=== PATIENT | female | born 1990 | race Two or more races ===

== ENCOUNTER 2018-12-22 03:13 | Emergency (ER) | payer BC ==
[2018-12-22 03:27] VITALS: BP 115/74
--- NOTE | 2018-12-22 03:38 | EDM.PDOC ---
ED HPI GENERAL MEDICAL PROBLEM - General Chief Complaint: Abdominal Pain Stated Complaint: LOWER ABDOMINAL PAIN Time Seen by Provider: 12/22/18 03:45 Source of Information: Reports: Patient, RN Notes Reviewed - History of Present Illness INITIAL COMMENTS - FREE TEXT/NARRATIVE: 28-year-old female lower mid abdominal discomfort that first started about 5 or 6 months ago. She did have quite extensive medical evaluation back at that time which did not show apparent etiology. She has continued to have symptoms since that time but now becoming much worse the past couple of weeks. The pain does come and go but now more steady and persistent, more severe and now also is radiating at times to her back. She's had no voiding symptoms. She states that she has not been constipated nor has she been having diarrhea. There has been a stool change in that it is more dark and "more foul-smelling smelling than what it had been in the past. She did have a Pap smear last summer followed by colposcopy for "abnormal cells". her last menstrual period a couple of weeks ago was quite heavy with some clots. She feels like her appetite is diminished. She is not aware of weight loss. She has not been having upper abdominal discomfort, chest pain or difficulty breathing. Lower Abdomen Pain Score (Numeric/FACES): 8 - Related Data Allergies Allergy/AdvReac Type Severity Reaction Status Date / Time No Known Allergies Allergy Verified 12/22/18 03:27 Home Meds: Home Meds Dicyclomine [Bentyl] 10 mg PO TID PRN #20 cap 12/22/18 [Rx] Past Medical History HEENT History: Reports: Other (See Below) Other HEENT History: Dry eyes Cardiovascular History: Reports: Heart Murmur Respiratory History: Reports: None Gastrointestinal History: Reports: None Genitourinary History: Reports: None [employer] History: Reports: , Spontaneous Musculoskeletal History: Reports: None Oncologic (Cancer) History: Reports: None - Infectious Disease History Infectious Disease History: Reports: Chicken Pox - Past Surgical History HEENT Surgical History: Reports: Naso-Sinus Surgery, Oral Surgery Female Surgical History: Reports: D&C, Other (See Below) - History Comment History Comment: vits for home meds Social & Family History - Family History OBGYN: Reports: Endocrine/Metabolic: Reports: Diabetes, Type I, Hypothyroidism Other Endocrine/Metabolic Family History: Father DM. Mother Hypothyroid ED ROS GENERAL - Review of Systems Review Of Systems: See Below Constitutional: Denies: Fever, Chills HEENT: Denies: Sinus Problem, Throat Pain Respiratory: Denies: Shortness of Breath Cardiovascular: Denies: Chest Pain GI/Abdominal: Reports: Abdominal Pain, Decreased Appetite, Melena (her stools have been more dark than usual), Nausea. Denies: Constipation, Diarrhea, Hematochezia Musculoskeletal: Reports: No Symptoms Skin: Reports: No Symptoms Neurological: Reports: No Symptoms ED EXAM, GI/ABD - Physical Exam Exam: See Below General Appearance: Alert, Mild Distress Eyes: Bilateral: Normal Appearance Throat/Mouth: Normal Inspection, Normal Oropharynx Head: Atraumatic. No: Facial Swelling Neck: Supple, Full Range of Motion Respiratory/Chest: No Respiratory Distress, Lungs Clear, Normal Breath Sounds Cardiovascular: Regular Rate, Rhythm GI/Abdominal Exam: Tender (mild diffuse tenderness). No: Rigid, Rebound Rectal (Female) Exam: Heme - Stool, Other (no unusual mass or tenderness palpable) Extremities: Normal Inspection, Normal Range of Motion. No: Pedal Edema Neurological: Alert, Oriented, No Motor/Sensory Deficits Skin Exam: Warm, Dry, Normal Color Course - Vital Signs Last Recorded V/S: Last Vital Signs Temp 98.5 F 12/22/18 03:24 Pulse 88 12/22/18 03:24 Resp 18 12/22/18 03:24 BP 115/74 12/22/18 03:24 Pulse Ox 18 L 12/22/18 03:24 - Orders/Labs/Meds Labs: Laboratory Tests 12/22/18 12/22/18 12/22/18 Range/Units 04:15 04:15 04:15 WBC 6.51 (3.98-10.04) K/mm3 RBC 4.18 (3.98-5.22) M/mm3 Hgb 10.8 L (11.2-15.7) gm/L Hct 33.2 L (34.1-44.9) % MCV 79.4 (79.4-94.8) fl MCH 25.8 (25.6-32.2) pg MCHC 32.5 (32.2-35.5) g/dl RDW Std Deviation 45.6 (36.4-46.3) fL Plt Count 293 (182-369) K/mm3 MPV 10.3 (9.4-12.3) fl Neutrophils % (Manual) 56 (40-60) % Band Neutrophils % 0 (0-10) % Lymphocytes % (Manual) 36 (20-40) % Atypical Lymphs % 0 % Monocytes % (Manual) 2 (2-10) % Eosinophils % (Manual) 5 (0.7-5.8) % Basophils % (Manual) 1 (0.1-1.2) Platelet Estimate Adequate Plt Morphology Comment Normal Hypochromasia 1+ slight Microcytosis 1+ slight RBC Morph Comment Not Reportable Sodium 140 (136-145) mEq/L Potassium 3.8 (3.5-5.1) mEq/L Chloride 107 (98-107) mEq/L Carbon Dioxide 24 (21-32) mEq/L Anion Gap 12.8 (5-15) BUN 11 (7-18) mg/dL Creatinine 0.9 (0.55-1.02) mg/dL Est Cr Clr Drug Dosing TNP Estimated GFR (MDRD) > 60 (>60) mL/min BUN/Creatinine Ratio 12.2 L (14-18) Glucose 99 (74-106) mg/dL Calcium 8.9 (8.5-10.1) mg/dL Total Bilirubin 0.3 (0.2-1.0) mg/dL AST 14 L (15-37) U/L ALT 16 (14-59) U/L Alkaline Phosphatase 39 L (46-116) U/L C-Reactive Protein < 0.2 (<1.0) mg/dL Total Protein 7.2 (6.4-8.2) g/dl Albumin 3.6 (3.4-5.0) g/dl Globulin 3.6 gm/dL Albumin/Globulin Ratio 1.0 (1-2) HCG, Qual (NEGATIVE) Urine Color (Yellow) Urine Appearance (Clear) Urine pH (5.0-8.0) Ur Specific Ralph (1.005-1.030) Urine Protein (Negative) Urine Glucose (UA) (Negative) Urine Ketones (Negative) Urine Occult Blood (Negative) Urine Nitrite (Negative) Urine Bilirubin (Negative) Urine Urobilinogen (0.2-1.0) Ur Leukocyte Esterase (Negative) Urine RBC (0-5) /hpf Urine WBC (0-5) /hpf Ur Epithelial Cells (0-5) /hpf Urine Bacteria (FEW) /hpf Urine Mucus (FEW) /hpf 12/22/18 12/22/18 Range/Units 04:15 04:30 WBC (3.98-10.04) K/mm3 RBC (3.98-5.22) M/mm3 Hgb (11.2-15.7) gm/L Hct (34.1-44.9) % MCV (79.4-94.8) fl MCH (25.6-32.2) pg MCHC (32.2-35.5) g/dl RDW Std Deviation (36.4-46.3) fL Plt Count (182-369) K/mm3 MPV (9.4-12.3) fl Neutrophils % (Manual) (40-60) % Band Neutrophils % (0-10) % Lymphocytes % (Manual) (20-40) % Atypical Lymphs % % Monocytes % (Manual) (2-10) % Eosinophils % (Manual) (0.7-5.8) % Basophils % (Manual) (0.1-1.2) Platelet Estimate Plt Morphology Comment Hypochromasia Microcytosis RBC Morph Comment Sodium (136-145) mEq/L Potassium (3.5-5.1) mEq/L Chloride (98-107) mEq/L Carbon Dioxide (21-32) mEq/L Anion Gap (5-15) BUN (7-18) mg/dL Creatinine (0.55-1.02) mg/dL Est Cr Clr Drug Dosing Estimated GFR (MDRD) (>60) mL/min BUN/Creatinine Ratio (14-18) Glucose (74-106) mg/dL Calcium (8.5-10.1) mg/dL Total Bilirubin (0.2-1.0) mg/dL AST (15-37) U/L ALT (14-59) U/L Alkaline Phosphatase (46-116) U/L C-Reactive Protein (<1.0) mg/dL Total Protein (6.4-8.2) g/dl Albumin (3.4-5.0) g/dl Globulin gm/dL Albumin/Globulin Ratio (1-2) HCG, Qual Negative (NEGATIVE) Urine Color Light yellow (Yellow) Urine Appearance Clear (Clear) Urine pH 6.5 (5.0-8.0) Ur Specific Ralph 1.020 (1.005-1.030) Urine Protein Negative (Negative) Urine Glucose (UA) Negative (Negative) Urine Ketones Negative (Negative) Urine Occult Blood Negative (Negative) Urine Nitrite Negative (Negative) Urine Bilirubin Negative (Negative) Urine Urobilinogen 0.2 (0.2-1.0) Ur Leukocyte Esterase Negative (Negative) Urine RBC 0-5 (0-5) /hpf Urine WBC 0-5 (0-5) /hpf Ur Epithelial Cells 0-5 (0-5) /hpf Urine Bacteria Few (FEW) /hpf Urine Mucus Not seen (FEW) /hpf Meds: Medications Discontinued Medications Generic Name Dose Route Start Last Admin Trade Name Makenna PRN Reason Stop Dose Admin Dicyclomine HCl 10 mg 12/22/18 06:42 12/22/18 06:51 Bentyl PO 12/22/18 06:43 10 mg ONETIME ONE Administration Hydromorphone HCl 0.5 mg 12/22/18 06:26 12/22/18 06:35 Dilaudid IVPUSH 12/22/18 06:27 0.5 mg ONETIME ONE Administration Ondansetron HCl Confirm 12/22/18 04:48 12/22/18 06:44 Zofran Administered 12/22/18 04:49 Not Given Dose 4 mg .ROUTE .STK-MED ONE Ondansetron HCl 4 mg 12/22/18 05:13 12/22/18 05:20 Zofran IVPUSH 12/22/18 05:14 4 mg ONETIME ONE Administration - Re-Assessments/Exams Free Text/Narrative Re-Assessment/Exam: 12/23/18 11:48 labs show mild anemia, otherwise all relatively normal. Ua nl, Hcg neg. due to long standing hx, no good explanation for sx, did did abd and pelvic CT, patient was strongly in agreement with that. CT did come back normal. She has a follow up appt. . she was having more pain after the CT so did do dilaudid 0.5 mg IV and bentyl 10 mg PO which did give her pretty good relief. Discharge instr. as documented. Departure - Departure Time of Disposition: 07:10 Disposition: Home, Self-Care 01 Condition: Fair Clinical Impression: Abdominal pain Qualifiers: Abdominal location: periumbilical Qualified Code(s): R10.33 - Periumbilical pain Anemia Qualifiers: Anemia type: unspecified type Qualified Code(s): D64.9 - Anemia, unspecified - Discharge Information Prescriptions: Dicyclomine [Bentyl] 10 mg PO TID PRN #20 cap PRN Reason: Abdominal Pain Instructions: Abdominal Pain, Adult, Anemia Referrals: PCP,None [Primary Care Provider] - Forms: ED Department Discharge Additional Instructions: Clear liquids and very bland diet as tolerated. Consider avoiding gluten- containing foods for now to see if that helps get you feeling better. Bentyl which is an anti-spasmodic type medicine 10 mg 2-3 times daily if needed for further abdominal pain or cramping. Also start probiotic if not already taking that and take that twice daily for now until further directed. See Dr. Prater tomorrow as planned. Return to ED as needed.
[2018-12-22] MEDS ORDERED: Ondansetron 4 MG/2 ML SDV ONE (04:48)
[2018-12-22] MEDS ORDERED: Ondansetron 4 MG/2 ML SDV IVPUSH ONE (05:13)
[2018-12-22] MEDS ORDERED: HYDROmorphone 1 MG/ML Syringe IVPUSH ONE (06:26)
--- NOTE | 2018-12-22 06:37 | CT ---
CT abdomen and pelvis Technique: Multiple axial sections were obtained from above the dome of the diaphragm inferiorly through the pubic symphysis. Intravenous and oral contrast was utilized. Delayed images were also obtained through the bladder. Comparison: No prior abdominal imaging. Findings: Small portion of the visualized lung bases are clear. Liver contains no focal abnormality. Spleen appears within normal limits. Adrenal glands show no nodule. Gallbladder contains no calcified gallstones. Pancreas appears within normal limits. Kidneys show symmetric contrast enhancement without hydronephrosis or mass. Aorta shows no aneurysm. No retroperitoneal adenopathy is seen. No mesenteric abnormalities are seen. Appendix is seen and is normal in size. No pelvic mass or adenopathy is seen. No free fluid or inflammatory change is seen. Delayed images shows contrast within the distal ureters and within the bladder. Bone window settings were reviewed which appear within normal limits for the patient's age. Impression: 1. Normal findings as described above. Nothing acute is appreciated on CT study of the abdomen and pelvis. Diagnostic code #1
[2018-12-22] MEDS ORDERED: Dicyclomine 10 MG Cap PO ONE (06:42)
== END 2018-12-22 07:34 | disposition home or self-care (01) ==
LOC: JD.ED 03:13
DX: R10.33 Periumbilical pain (principal); D64.9 Anemia, unspecified
CPT/HCPCS: 36415; 74177; 80053; 81001; 84703; 85007; 85027; 86140; 96374; 96375; 99284; A9270; J1170; J2405

== ENCOUNTER 2020-09-19 20:31 | Emergency (ER) | payer BC ==
[2020-09-19 20:56] VITALS: BP 127/86; PULSE 110
--- NOTE | 2020-09-19 21:33 | EDM.PDOC ---
ED HPI GENERAL MEDICAL PROBLEM - General Chief Complaint: Upper Extremity Injury/Pain Stated Complaint: FELL OFF TREADMILL & INJURED FINGERS ON BOTH HANDS Time Seen by Provider: 09/19/20 21:19 - History of Present Illness INITIAL COMMENTS - FREE TEXT/NARRATIVE: 30-year-old female presents the emergency room with bilateral hand injury. Earlier this evening approximately 8:00 the patient was working out on a treadmill and lost control falling forward. She has a scrape on her knee but this is not bothering her both of her hands are very sore in the finger areas and a few of her fingers she is having difficulty moving. Patient denies any other injury with this most unfortunate mishap. Certain she did not hit her head or any other part of her body. She denies being this time. Bilateral Hand Pain Score (Numeric/FACES): 10 Left Hand Pain Score (Numeric/FACES): 5 - Related Data Allergies Allergy/AdvReac Type Severity Reaction Status Date / Time No Known Allergies Allergy Verified 12/22/18 03:27 Home Meds: Home Meds . 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 Mother Hypothyroid - Tobacco Use Tobacco Use Status *Q: Never Tobacco User - Caffeine Use Caffeine Use: Reports: None - Recreational Drug Use Recreational Drug Use: No Review of Systems - Review of Systems Review Of Systems: See Below Constitutional: Reports: No Symptoms Eyes: Reports: No Symptoms Ears: Reports: No Symptoms Nose: Reports: No Symptoms Mouth/Throat: Reports: No Symptoms Respiratory: Reports: No Symptoms Cardiovascular: Reports: No Symptoms GI/Abdominal: Reports: No Symptoms Genitourinary: Reports: No Symptoms Musculoskeletal: Reports: No Symptoms, Other (There than HPI) Skin: Reports: Other (Abrasion on knee) ED EXAM, GENERAL - Physical Exam Exam: See Below Exam Limited By: No Limitations General Appearance: Alert, No Apparent Distress Head: Atraumatic Neck: Normal Inspection Respiratory/Chest: No Respiratory Distress, Lungs Clear, Normal Breath Sounds, No Accessory Muscle Use, Chest Non-Tender Cardiovascular: Normal Peripheral Pulses, Regular Rate, Rhythm, No Edema GI/Abdominal: Normal Bowel Sounds, Soft, Non-Tender Back Exam: Normal Inspection. No: CVA Tenderness (L), CVA Tenderness (R), Vertebral Tenderness Extremities: Normal Inspection, No Pedal Edema, Other (Nation of her hands shows good range of motion around the wrist however most of her digits seem to be involved the ones of concern include the right index finger and to a lesser degree the left index and middle finger we will check x-rays before we thoroughly examine these. She has some ecchymosis over the thenar eminences of the thumb bilaterally) Neurological: Alert, Oriented, Normal Cognition Course - Vital Signs Last Recorded V/S: Last Vital Signs Temp 37.0 C 09/19/20 20:51 Pulse 110 H 09/19/20 20:51 Resp 18 09/19/20 20:51 BP 127/86 09/19/20 20:51 Pulse Ox 100 09/19/20 20:51 - Orders/Labs/Meds Orders: Active Orders 24 hr Category Date Time Status Hand Comp Min 3V Lt [CR] Stat Exams 09/19/20 21:22 Ordered Hand Comp Min 3V Rt [CR] Stat Exams 09/19/20 21:22 Taken - Re-Assessments/Exams Free Text/Narrative Re-Assessment/Exam: 09/19/20 22:48 Emanation was done of the hands the right hand is essentially unremarkable no evidence of any acute fracture dislocation. And as time went by she is moving her fingers much better on the right side. Left is a little concerning for proximal phalanx fracture just at the distal end not involving the joint surface. This is subtle and may well be an overread on my part however this is where she has exquisite tenderness. I sulma taped this finger to the middle finger in the usual fashion and the patient did get some relief from this. I have recommended the patient to follow-up in the clinic in 1 week where they should give serious consideration to re x-raying this digit. Departure - Departure Time of Disposition: 22:50 Disposition: Home, Self-Care 01 Clinical Impression: Injury of left index finger - Discharge Information Referrals: PCP,None [Primary Care Provider] - Forms: ED Department Discharge Additional Instructions: Return to the emergency room with any questions problems or worsening symptoms. Keep this sulma taped like we showed you change this daily or if it ever gets wet. Follow-up in the hospital clinic in 1 week for recheck. Clinic phone number is [phone]. Discuss having this left index finger re x-rayed as it could be fractured. Continued sulma taping for 3 to 4 weeks is indicated. Tylenol and/or Motrin as needed for discomfort. Sepsis Event Note (ED) - Evaluation Sepsis Screening Result: No Definite Risk - Focused Exam Vital Signs: Vital Signs Temp Pulse Resp BP Pulse Ox 09/19/20 20:51 37.0 C 110 H 18 127/86 100 - My Orders Last 24 Hours: My Active Orders 09/19/20 21:22 Hand Comp Min 3V Lt [CR] Stat Hand Comp Min 3V Rt [CR] Stat - Assessment/Plan Last 24 Hours: My Active Orders 09/19/20 21:22 Hand Comp Min 3V Lt [CR] Stat Hand Comp Min 3V Rt [CR] Stat
--- NOTE | 2020-09-20 16:02 | CR ---
Left hand: 4 views of the left hand were obtained. Comparison: No prior hand exam is available. Findings: Osseous: Small fracture is identified involving the anterior corner base of the middle phalanx of the second finger. Mild displacement is seen measuring approximately 6 mm. No additional fracture or other bony abnormality is appreciated. Impression: 1. Small corner fracture involving the middle phalanx of the left second finger as noted above. Diagnostic code #3
--- NOTE | 2020-09-20 16:03 | CR ---
Right hand: 4 views of the right hand were obtained. Comparison: No prior hand study is available. Findings: Lesion is identified within the middle phalanx of the fifth finger. This causes cortical thinning. No discrete fracture is appreciated. Impression: 1. Bony lesion within the middle phalanx of the fifth finger. This causes cortical thinning and puts the patient at risk for future fracture. 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 2. No additional abnormality is seen. Diagnostic code #3
== END 2020-09-19 22:56 | disposition home or self-care (01) ==
LOC: JD.ED 20:31
DX: S60.221A Contusion of right hand, initial encounter (principal); S69.92XA Unspecified injury of left wrist, hand and finger(s), initial encounter; W19.XXXA Unspecified fall, initial encounter; Y93.A1 Activity, exercise machines primarily for cardiorespiratory conditioning
CPT/HCPCS: 73130-26-LT; 73130-26-RT; 73130-LT; 73130-RT; 99282; 99283-25